=== PATIENT | male | born 1995 | race Two or more races ===

== ENCOUNTER → 2018-04-23 | Outpatient (CLI) | payer BC ==
[2018-04-23 10:06] LABS: LDL CHOLESTEROL 63 mg/dl
== END ==
LOC: LAB 09:15
PROVIDERS: ATTEND Nurse Practitioner Pediatrics
DX: F43.10 Post-traumatic stress disorder, unspecified (principal)
CPT/HCPCS: 36415; 82310; 82374; 82435; 82465; 82565; 82947; 83718; 84132; 84146; 84295; 84443; 84478; 84520; 85027

== ENCOUNTER → 2018-04-24 | Outpatient (CLI) | payer BC | LOC: EDBD → RESP 00:55 | PROVIDERS: ATTEND Nurse Practitioner Pediatrics | DX: F43.10 Post-traumatic stress disorder, unspecified (principal) | CPT/HCPCS: 95819 ==

== ENCOUNTER 2018-08-19 19:07 | Emergency (ER) | payer BC ==
[2018-08-19] MEDS ORDERED: FLUO-201 PO (19:14)
[2018-08-19] MEDS ORDERED: ARI2 PO (19:14)
--- NOTE | 2018-08-19 19:25 | ER Report ---
History and Physical Time Seen By MD: 19:16 Hx. of Stated Complaint: FEELS LIKE HE'S STRUGGLING AND WANTS TO TALK WITH SOMEONE. 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 He has a long history of mental health. He has a previous suicidal attempt sitting on a building with plans to jump off at [facility] several months ago. [facility] is being followed by [facility]. He sees a counselor here. He is on medication. There's been no change in his dose. Patient states smoking cannabis at least twice daily continuously for several weeks to months. He denies a suicidal plan or ideation at this time. REVIEW OF SYSTEMS: Respiratory: No cough, no dyspnea. Cardiovascular: No chest pain, no palpitations. Gastrointestinal: No vomiting, no abdominal pain. Musculoskeletal: No back pain. Allergies: Coded Allergies: No Known Drug Allergies (Unverified , 08/20/18) Home Meds Reported Medications Fluoxetine Hcl (PROZAC) 10 Mg Capsule, 10 MG PO QDAY, CAPSULE 08/19/18 Aripiprazole (ABILIFY) 2 Mg Tablet, 2 MG PO QDAY, TAB 08/19/18 [facility]: [facility] Hx Alcohol Use: Yes Constitutional Vital Sign - Last 24 Hours 08/19/18 08/19/18 08/19/18 08/19/18 19:11 19:13 19:22 19:30 Temp 98.7 Pulse 68 74 Resp 14 B/P (MAP) 130/91 130/91 (104) 123/81 (95) Pulse Ox 96 94 O2 Delivery Room Air 08/19/18 08/19/18 08/19/18 08/19/18 19:37 19:52 20:04 20:07 Pulse 67 64 69 B/P (MAP) 134/97 (109) Pulse Ox 96 97 94 08/19/18 08/19/18 08/19/18 08/19/18 20:22 20:30 20:37 20:52 Pulse ??? 66 ??? B/P (MAP) 121/81 (94) Pulse Ox 97 Physical Exam Vital signs stable, afebrile, pulse ox normal General Appearance: The patient is alert, has no immediate need for airway protection and no current signs of toxicity., Withdrawn, slow quiet affect HEENT: Pupils equal and round no injection. TMs normal, oropharynx without redness or exudate, mucous. Membranes are moist Respiratory: Chest is non tender, lungs are clear to auscultation. Cardiac: regular rate and rhythm Gastrointestinal: Abdomen is soft and non tender, no masses, bowel sounds normal. Musculoskeletal: Neck: Neck is supple and non tender. No lymphadenopathy Extremities have full range of motion and are non tender. Skin: No rashes or lesions. DIFFERENTIAL DIAGNOSIS: After history and physical exam differential diagnosis was considered for depression including functional and major depression, situational depression, medication side effect, drugs and alcohol abuse. Medical Decision Making Data Points Result Diagram: 08/19/18193008/19/181930 Laboratory Hematology Test 08/19/18 19:31 08/19/18 20:03 Red Blood Count 5.06 M/uL (4.00-5.60) Mean Corpuscular Volume 89.6 fL (80.0-96.0) Mean Corpuscular Hemoglobin 31.4 pg (26.0-33.0) Mean Corpuscular Hemoglobin Concent 35.0 g/dL (32.0-36.0) Red Cell Distribution Width 12.9 % (11.5-14.5) Mean Platelet Volume 7.4 fL (7.2-11.1) Neutrophils (%) (Auto) 63.7 % (39.4-72.5) Lymphocytes (%) (Auto) 25.4 % (17.6-49.6) Monocytes (%) (Auto) 8.2 % (4.1-12.4) Eosinophils (%) (Auto) 2.1 % (0.4-6.7) Basophils (%) (Auto) 0.6 % (0.3-1.4) Nucleated RBC Relative Count (auto) 0.0 /100WBC Neutrophils # (Auto) 5.6 K/uL (2.0-7.4) Lymphocytes # (Auto) 2.2 K/uL (1.3-3.6) Monocytes # (Auto) 0.7 K/uL (0.3-1.0) Eosinophils # (Auto) 0.2 K/uL (0.0-0.5) Basophils # (Auto) 0.1 K/uL (0.0-0.1) Nucleated RBC Absolute Count (auto) 0.00 K/uL Sodium Level 143 mmol/L (137-145) Potassium Level 3.6 mmol/L (3.5-5.0) Chloride Level 104 mmol/L (98-107) Carbon Dioxide Level 25 mmol/L (22-30) Blood Urea Nitrogen 16 mg/dl (9-21) Creatinine 1.10 mg/dl (0.66-1.25) Glomerular Filtration Rate Calc > 60.0 Random Glucose 87 mg/dl (75-110) Calcium Level 9.5 mg/dl (8.4-10.2) Magnesium Level 2.2 mg/dl (1.7-2.2) Total Bilirubin 0.6 mg/dl (0.2-1.3) Aspartate Amino Transf (AST/SGOT) 24 U/L (0-35) Alanine Aminotransferase (ALT/SGPT) 34 U/L (0-56) Alkaline Phosphatase 56 U/L (0-126) Total Protein 7.6 g/dl (6.3-8.2) Albumin 4.5 g/dl (3.5-5.0) Thyroid Stimulating Hormone (TSH) 2.78 uIU/ml (0.46-4.68) Salicylates Level < 10 mg/L Salicylate Last Dose Date unk Acetaminophen Level < 10 ug/ml Serum Alcohol < 10 mg/dl Urine Color Yellow Urine Clarity Clear Urine pH 5.0 pH (4.8-9.5) Urine Specific [place] 1.026 Urine Protein Negative mg/dL (NEGATIVE) Urine Glucose (UA) Negative mg/dL (NEGATIVE) Urine Ketones Negative mg/dL (NEGATIVE) Urine Blood Negative (NEGATIVE) Urine Nitrite Negative (NEGATIVE) Urine Bilirubin Negative (NEGATIVE) Urine Urobilinogen 2.0 mg/dL (0.2-1.9) Urine Leukocyte Esterase Negative (NEGATIVE) Urine RBC 6 /HPF (0-2/HPF) Urine WBC 1 /HPF (0-5/HPF) Urine Squamous Epithelial Cells None /LPF (</=FEW) Urine Bacteria Negative /HPF (NONE-FEW) Urine Mucus Few /HPF (NONE-FEW) Urine Opiates Screen Negative Urine Barbiturates Screen Negative Ur Tricyclic Antidepressants Screen Negative Urine Phencyclidine Screen Negative Urine Amphetamines Screen Negative Urine Benzodiazepines Screen Negative Urine Cocaine Screen Negative Urine Cannabinoids Screen Positive Chemistry Test 08/19/18 19:31 08/19/18 20:03 White Blood Count 8.8 k/uL (4.5-11.0) Red Blood Count 5.06 M/uL (4.00-5.60) Hemoglobin 15.9 g/dL (14.0-18.0) Hematocrit 45.4 % (42.0-52.0) Mean Corpuscular Volume 89.6 fL (80.0-96.0) Mean Corpuscular Hemoglobin 31.4 pg (26.0-33.0) Mean Corpuscular Hemoglobin Concent 35.0 g/dL (32.0-36.0) Red Cell Distribution Width 12.9 % (11.5-14.5) Platelet Count 291 K/uL (150-450) Mean Platelet Volume 7.4 fL (7.2-11.1) Neutrophils (%) (Auto) 63.7 % (39.4-72.5) Lymphocytes (%) (Auto) 25.4 % (17.6-49.6) Monocytes (%) (Auto) 8.2 % (4.1-12.4) Eosinophils (%) (Auto) 2.1 % (0.4-6.7) Basophils (%) (Auto) 0.6 % (0.3-1.4) Nucleated RBC Relative Count (auto) 0.0 /100WBC Neutrophils # (Auto) 5.6 K/uL (2.0-7.4) Lymphocytes # (Auto) 2.2 K/uL (1.3-3.6) Monocytes # (Auto) 0.7 K/uL (0.3-1.0) Eosinophils # (Auto) 0.2 K/uL (0.0-0.5) Basophils # (Auto) 0.1 K/uL (0.0-0.1) Nucleated RBC Absolute Count (auto) 0.00 K/uL Glomerular Filtration Rate Calc > 60.0 Calcium Level 9.5 mg/dl (8.4-10.2) Magnesium Level 2.2 mg/dl (1.7-2.2) Total Bilirubin 0.6 mg/dl (0.2-1.3) Aspartate Amino Transf (AST/SGOT) 24 U/L (0-35) Alanine Aminotransferase (ALT/SGPT) 34 U/L (0-56) Alkaline Phosphatase 56 U/L (0-126) Total Protein 7.6 g/dl (6.3-8.2) Albumin 4.5 g/dl (3.5-5.0) Thyroid Stimulating Hormone (TSH) 2.78 uIU/ml (0.46-4.68) Salicylates Level < 10 mg/L Salicylate Last Dose Date unk Acetaminophen Level < 10 ug/ml Serum Alcohol < 10 mg/dl Urine Color Yellow Urine Clarity Clear Urine pH 5.0 pH (4.8-9.5) Urine Specific [place] 1.026 Urine Protein Negative mg/dL (NEGATIVE) Urine Glucose (UA) Negative mg/dL (NEGATIVE) Urine Ketones Negative mg/dL (NEGATIVE) Urine Blood Negative (NEGATIVE) Urine Nitrite Negative (NEGATIVE) Urine Bilirubin Negative (NEGATIVE) Urine Urobilinogen 2.0 mg/dL (0.2-1.9) Urine Leukocyte Esterase Negative (NEGATIVE) Urine RBC 6 /HPF (0-2/HPF) Urine WBC 1 /HPF (0-5/HPF) Urine Squamous Epithelial Cells None /LPF (</=FEW) Urine Bacteria Negative /HPF (NONE-FEW) Urine Mucus Few /HPF (NONE-FEW) Urine Opiates Screen Negative Urine Barbiturates Screen Negative Ur Tricyclic Antidepressants Screen Negative Urine Phencyclidine Screen Negative Urine Amphetamines Screen Negative Urine Benzodiazepines Screen Negative Urine Cocaine Screen Negative Urine Cannabinoids Screen Positive Toxicology Test 08/19/18 19:31 08/19/18 20:03 Salicylates Level < 10 mg/L Salicylate Last Dose Date unk Acetaminophen Level < 10 ug/ml Serum Alcohol < 10 mg/dl Urine Opiates Screen Negative Urine Barbiturates Screen Negative Ur Tricyclic Antidepressants Screen Negative Urine Phencyclidine Screen Negative Urine Amphetamines Screen Negative Urine Benzodiazepines Screen Negative Urine Cocaine Screen Negative Urine Cannabinoids Screen Positive Urinalysis Test 08/19/18 20:03 Urine Color Yellow Urine Clarity Clear Urine pH 5.0 pH (4.8-9.5) Urine Specific [place] 1.026 Urine Protein Negative mg/dL (NEGATIVE) Urine Glucose (UA) Negative mg/dL (NEGATIVE) Urine Ketones Negative mg/dL (NEGATIVE) Urine Blood Negative (NEGATIVE) Urine Nitrite Negative (NEGATIVE) Urine Bilirubin Negative (NEGATIVE) Urine Urobilinogen 2.0 mg/dL (0.2-1.9) Urine Leukocyte Esterase Negative (NEGATIVE) Urine RBC 6 /HPF (0-2/HPF) Urine WBC 1 /HPF (0-5/HPF) Urine Squamous Epithelial Cells None /LPF (</=FEW) Urine Bacteria Negative /HPF (NONE-FEW) Urine Mucus Few /HPF (NONE-FEW) ED Course/Re-evaluation ED Course Patient was admitted to an examination room. H&P was done. The differential diagnoses was considered. On clinical examination, patient appears depressed and withdrawn. He denies suicidal ideation or plan. He is on medication. He's been struggling to cope with his current problems. He feels like school is overwhelming him. Diagnostic evaluation was performed. And was unremarkable. [facility] staff was consulted to speak with the patient to give him options. He is given option to return should he have any worsening. ER. He has counseling and follow-up. Decision to Disposition Date: Aug 19, 2018 Decision to Disposition Time: 19:39 Depart Departure Latest Vital Signs Vital Signs Date Time Temp Pulse Resp B/P (MAP) Pulse Ox O2 Delivery O2 Flow Rate FiO2 08/19/18 20:52 ??? 08/19/18 20:37 97 08/19/18 20:30 121/81 (94) 08/19/18 19:11 98.7 14 Room Air Impression: Primary Impression: Depression Condition: Improved Disposition: HOME OR SELF-CARE Patient Instructions: Depression (ED) Additional Instructions: Follow-up with your counselor tomorrow or the next day Feel free to return for any worsening, especially if you are feeling overtly suicidal Problem Qualifiers Primary Impression: Depression Depression Type: major depressive disorder Major depression recurrence: recurrent Active/Remission status: currently active Major depression episode severity: severe Psychotic features: without psychotic features Qualified Codes: F33.2 - Major depressive disorder, recurrent severe without psychotic features JASON NOLAN DO Aug 19, 2018 19:25
[2018-08-19 19:40] LABS: PLATELET COUNT, AUTOMATED 291 K/uL (150-450)
[2018-08-19 20:30] VITALS: BP 121/81
== END 2018-08-19 20:57 | disposition home or self-care (01) ==
LOC: ER 19:39
DX: F33.2 Major depressive disorder, recurrent severe without psychotic features (principal); F12.90 Cannabis use, unspecified, uncomplicated
CPT/HCPCS: 80305; 80320; 80329; 81001; 82040; 82247; 82310; 82374; 82435; 82565; 82947; 83735; 84075; 84132; 84155; 84295; 84443; 84450; 84460; 84520; 85025; 99281

== ENCOUNTER 2018-08-20 17:14 | Emergency (ER) | payer BC ==
[~2018-08-20 17:14] MED LIST: ARI2 PO; FLUO-201 PO
[2018-08-20 17:21] VITALS: BP 115/67
--- NOTE | 2018-08-20 17:25 | ER Report ---
History and Physical Time Seen By MD: 17:24 Hx. of Stated Complaint: depression HPI/ROS CHIEF COMPLAINT: Depression HISTORY OF PRESENT ILLNESS: This is a 23-year-old male who presents to the emergency Department for depression. Patient states he was here yesterday for depressive thoughts, was ultimately encouraged to come to the emergency department from his professor and the [employer] police. There was no indication of suicidal or homicidal gestures yesterday, there is no suicidal or homicidal gestures today. Patient states he feels that he isn't in place now where he would be willing to go upstairs to the behavioral health unit for an evaluation. Patient states he has seeing a counselor but doesn't feel that its adequate at this time. He is looking for other resources. No fevers or chills. No chest pain or shortness of breath. No nausea or vomiting. REVIEW OF SYSTEMS: Constitutional: No fever, no chills. Eyes: No discharge. ENT: No sore throat. Cardiovascular: No chest pain, no palpitations. Respiratory: No cough, no shortness of breath. Gastrointestinal: No abdominal pain, no vomiting. Genitourinary: No hematuria. Musculoskeletal: No back pain. Skin: No rashes. Neurological: No headache. Psych: As above. Allergies: Coded Allergies: No Known Drug Allergies (Unverified , 08/20/18) Home Meds Reported Medications Fluoxetine Hcl (PROZAC) 10 Mg Capsule, 10 MG PO QDAY, CAPSULE 08/19/18 Aripiprazole (ABILIFY) 2 Mg Tablet, 2 MG PO QDAY, TAB 08/19/18 Past Medical/Surgical History The patient has a past medical and surgical history of ruptured eardrum, uses marijuana, depression. Reviewed Nurses Notes: Yes Hx Substance Use Disorder: Yes ([facility]) Hx Alcohol Use: Yes Constitutional Vital Sign - Last 24 Hours 08/20/18 17:21 Temp 98.0 Pulse 61 Resp 18 B/P (MAP) 115/67 Pulse Ox 94 Physical Exam General Appearance: The patient is alert, has no immediate need for airway protection and no signs of toxicity. Eyes: Pupils equal and round no pallor or injection. ENT, Mouth: Mucous membranes are moist. Respiratory: There are no retractions, lungs are clear to auscultation. Cardiovascular: Regular rate and rhythm. Gastrointestinal: Abdomen is soft and non tender, no masses, bowel sounds normal. Neurological: Alert and oriented 4. Moving all extremities. Following all commands. No focal neuro deficits. Skin: Warm and dry, no rashes. Musculoskeletal: Neck is supple non tender. Extremities are nontender, nonswollen and have full range of motion. Psych: Patient is making good eye contact, interacting well, soft voice, nonthreatening and cooperative. No suicidal or homicidal gestures. DIFFERENTIAL DIAGNOSIS: After history and physical exam differential diagnosis was considered for depression, anxiety. Medical Decision Making Data Points Result Diagram: 08/20/18 1734 08/20/18 1734 Laboratory Hematology Test 08/20/18 17:34 08/20/18 18:26 Red Blood Count 5.03 M/uL (4.00-5.60) Mean Corpuscular Volume 90.8 fL (80.0-96.0) Mean Corpuscular Hemoglobin 31.6 pg (26.0-33.0) Mean Corpuscular Hemoglobin Concent 34.8 g/dL (32.0-36.0) Red Cell Distribution Width 13.1 % (11.5-14.5) Mean Platelet Volume 7.6 fL (7.2-11.1) Neutrophils (%) (Auto) 66.4 % (39.4-72.5) Lymphocytes (%) (Auto) 21.8 % (17.6-49.6) Monocytes (%) (Auto) 6.8 % (4.1-12.4) Eosinophils (%) (Auto) 3.4 % (0.4-6.7) Basophils (%) (Auto) 1.6 % (0.3-1.4) Nucleated RBC Relative Count (auto) 0.1 /100WBC Neutrophils # (Auto) 5.7 K/uL (2.0-7.4) Lymphocytes # (Auto) 1.9 K/uL (1.3-3.6) Monocytes # (Auto) 0.6 K/uL (0.3-1.0) Eosinophils # (Auto) 0.3 K/uL (0.0-0.5) Basophils # (Auto) 0.1 K/uL (0.0-0.1) Nucleated RBC Absolute Count (auto) 0.01 K/uL Sodium Level 140 mmol/L (137-145) Potassium Level 3.8 mmol/L (3.5-5.0) Chloride Level 103 mmol/L (98-107) Carbon Dioxide Level 25 mmol/L (22-30) Blood Urea Nitrogen 17 mg/dl (9-21) Creatinine 1.10 mg/dl (0.66-1.25) Glomerular Filtration Rate Calc > 60.0 Random Glucose 104 mg/dl (75-110) Calcium Level 9.6 mg/dl (8.4-10.2) Magnesium Level 2.0 mg/dl (1.7-2.2) Total Bilirubin 0.6 mg/dl (0.2-1.3) Aspartate Amino Transf (AST/SGOT) 22 U/L (0-35) Alanine Aminotransferase (ALT/SGPT) 27 U/L (0-56) Alkaline Phosphatase 59 U/L (0-126) Total Protein 7.1 g/dl (6.3-8.2) Albumin 4.2 g/dl (3.5-5.0) Salicylates Level < 10 mg/L Salicylate Last Dose Date unk Acetaminophen Level < 10 ug/ml Serum Alcohol < 10 mg/dl Urine Color Yellow Urine Clarity Clear Urine pH 6.0 pH (4.8-9.5) Urine Specific [place] 1.015 Urine Protein Negative mg/dL (NEGATIVE) Urine Glucose (UA) Negative mg/dL (NEGATIVE) Urine Ketones Negative mg/dL (NEGATIVE) Urine Blood Negative (NEGATIVE) Urine Nitrite Negative (NEGATIVE) Urine Bilirubin Negative (NEGATIVE) Urine Urobilinogen Negative mg/dL (0.2-1.9) Urine Leukocyte Esterase Negative (NEGATIVE) Urine RBC 1 /HPF (0-2/HPF) Urine WBC <1 /HPF (0-5/HPF) Urine Squamous Epithelial Cells None /LPF (</=FEW) Urine Bacteria Negative /HPF (NONE-FEW) Urine Mucus None /HPF (NONE-FEW) Urine Opiates Screen Negative Urine Barbiturates Screen Negative Ur Tricyclic Antidepressants Screen Negative Urine Phencyclidine Screen Negative Urine Amphetamines Screen Negative Urine Benzodiazepines Screen Negative Urine Cocaine Screen Negative Urine Cannabinoids Screen Positive Chemistry Test 08/20/18 17:34 08/20/18 18:26 White Blood Count 8.6 k/uL (4.5-11.0) Red Blood Count 5.03 M/uL (4.00-5.60) Hemoglobin 15.9 g/dL (14.0-18.0) Hematocrit 45.7 % (42.0-52.0) Mean Corpuscular Volume 90.8 fL (80.0-96.0) Mean Corpuscular Hemoglobin 31.6 pg (26.0-33.0) Mean Corpuscular Hemoglobin Concent 34.8 g/dL (32.0-36.0) Red Cell Distribution Width 13.1 % (11.5-14.5) Platelet Count 288 K/uL (150-450) Mean Platelet Volume 7.6 fL (7.2-11.1) Neutrophils (%) (Auto) 66.4 % (39.4-72.5) Lymphocytes (%) (Auto) 21.8 % (17.6-49.6) Monocytes (%) (Auto) 6.8 % (4.1-12.4) Eosinophils (%) (Auto) 3.4 % (0.4-6.7) Basophils (%) (Auto) 1.6 % (0.3-1.4) Nucleated RBC Relative Count (auto) 0.1 /100WBC Neutrophils # (Auto) 5.7 K/uL (2.0-7.4) Lymphocytes # (Auto) 1.9 K/uL (1.3-3.6) Monocytes # (Auto) 0.6 K/uL (0.3-1.0) Eosinophils # (Auto) 0.3 K/uL (0.0-0.5) Basophils # (Auto) 0.1 K/uL (0.0-0.1) Nucleated RBC Absolute Count (auto) 0.01 K/uL Glomerular Filtration Rate Calc > 60.0 Calcium Level 9.6 mg/dl (8.4-10.2) Magnesium Level 2.0 mg/dl (1.7-2.2) Total Bilirubin 0.6 mg/dl (0.2-1.3) Aspartate Amino Transf (AST/SGOT) 22 U/L (0-35) Alanine Aminotransferase (ALT/SGPT) 27 U/L (0-56) Alkaline Phosphatase 59 U/L (0-126) Total Protein 7.1 g/dl (6.3-8.2) Albumin 4.2 g/dl (3.5-5.0) Salicylates Level < 10 mg/L Salicylate Last Dose Date unk Acetaminophen Level < 10 ug/ml Serum Alcohol < 10 mg/dl Urine Color Yellow Urine Clarity Clear Urine pH 6.0 pH (4.8-9.5) Urine Specific [place] 1.015 Urine Protein Negative mg/dL (NEGATIVE) Urine Glucose (UA) Negative mg/dL (NEGATIVE) Urine Ketones Negative mg/dL (NEGATIVE) Urine Blood Negative (NEGATIVE) Urine Nitrite Negative (NEGATIVE) Urine Bilirubin Negative (NEGATIVE) Urine Urobilinogen Negative mg/dL (0.2-1.9) Urine Leukocyte Esterase Negative (NEGATIVE) Urine RBC 1 /HPF (0-2/HPF) Urine WBC <1 /HPF (0-5/HPF) Urine Squamous Epithelial Cells None /LPF (</=FEW) Urine Bacteria Negative /HPF (NONE-FEW) Urine Mucus None /HPF (NONE-FEW) Urine Opiates Screen Negative Urine Barbiturates Screen Negative Ur Tricyclic Antidepressants Screen Negative Urine Phencyclidine Screen Negative Urine Amphetamines Screen Negative Urine Benzodiazepines Screen Negative Urine Cocaine Screen Negative Urine Cannabinoids Screen Positive Toxicology Test 08/20/18 17:34 08/20/18 18:26 Salicylates Level < 10 mg/L Salicylate Last Dose Date unk Acetaminophen Level < 10 ug/ml Serum Alcohol < 10 mg/dl Urine Opiates Screen Negative Urine Barbiturates Screen Negative Ur Tricyclic Antidepressants Screen Negative Urine Phencyclidine Screen Negative Urine Amphetamines Screen Negative Urine Benzodiazepines Screen Negative Urine Cocaine Screen Negative Urine Cannabinoids Screen Positive Urinalysis Test 08/20/18 18:26 Urine Color Yellow Urine Clarity Clear Urine pH 6.0 pH (4.8-9.5) Urine Specific [place] 1.015 Urine Protein Negative mg/dL (NEGATIVE) Urine Glucose (UA) Negative mg/dL (NEGATIVE) Urine Ketones Negative mg/dL (NEGATIVE) Urine Blood Negative (NEGATIVE) Urine Nitrite Negative (NEGATIVE) Urine Bilirubin Negative (NEGATIVE) Urine Urobilinogen Negative mg/dL (0.2-1.9) Urine Leukocyte Esterase Negative (NEGATIVE) Urine RBC 1 /HPF (0-2/HPF) Urine WBC <1 /HPF (0-5/HPF) Urine Squamous Epithelial Cells None /LPF (</=FEW) Urine Bacteria Negative /HPF (NONE-FEW) Urine Mucus None /HPF (NONE-FEW) ED Course/Re-evaluation ED Course The patient was admitted to room. History of physical were obtained. Differential diagnoses were considered. Behavioral health labs were obtained, the labs were unremarkable. Urine was negative. Urine drug screen positive for cannabis otherwise unremarkable. It is speak with Dr. Clancy regarding the patient's case, she is accepted the patient in the behavioral health unit, the patient will be escorted to the unit. The patient had no other questions or concerns at this time. 08/20/2018 6:59:45 pm I did speak with Dr. Clancy regarding the patient's case, she has accepted the patient into the behavioral health unit, the patient has signed in voluntarily and is change into his scrubs. Decision to Disposition Date: Aug 20, 2018 Decision to Disposition Time: 19:00 Depart Departure Latest Vital Signs Vital Signs Date Time Temp Pulse Resp B/P (MAP) Pulse Ox O2 Delivery O2 Flow Rate FiO2 08/20/18 17:21 98.0 61 18 115/67 94 Impression: Primary Impression: Depression Condition: Improved Disposition: XFER TO [facility] Problem Qualifiers Primary Impression: Depression Depression Type: unspecified Qualified Codes: F32.9 - Major depressive disorder, single episode, unspecified SAPNA PEREZ HAM BONER-BC Aug 20, 2018 17:24
[2018-08-20 17:43] LABS: PLATELET COUNT, AUTOMATED 288 K/uL (150-450)
== END 2018-08-20 19:37 ==
LOC: ER 17:17
DX: F32.9 Major depressive disorder, single episode, unspecified (principal)
CPT/HCPCS: 36415; 80305; 80320; 80329; 81001; 82040; 82247; 82310; 82374; 82435; 82565; 82947; 83735; 84075; 84132; 84155; 84295; 84443; 84450; 84460; 84520; 85025; 99283

== ENCOUNTER 2018-08-20 19:19 | Inpatient (IN) | payer BC ==
[~2018-08-20] VITALS: Ht 190.5 cm; Wt 65.8 kg
[2018-08-20 19:41] VITALS: BP 129/83
[2018-08-20] MEDS ORDERED: MAG HYD/AL HYD/SIMETH 30ML UDC PO PRN (20:00)
[2018-08-20] MEDS ORDERED: ACETAMINOPHEN 325 MG TAB PO PRN (20:00)
[2018-08-20] MEDS: ARIPiprazole 10 MG TAB PO SCH (21:00)
[2018-08-20] MEDS: FLUoxetine HCL 20 MG CAP PO SCH (21:00)
[2018-08-20] MEDS: hydrOXYzine PAMOATE 25 MG CAP PO PRN (21:33)
[2018-08-21] MEDS: MULTIVITAMINS PO SCH (08:36)
[2018-08-21] MEDS: NICOTINE POLACRILEX 2 MG GUM PO PRN (12:24)
[2018-08-21 13:10] VITALS: BP 98/54
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
[2018-08-21] MEDS: FLUoxetine HCL 20 MG CAP PO SCH (20:41)
[2018-08-21] MEDS: ARIPiprazole 10 MG TAB PO SCH (20:41)
[2018-08-22 06:30] VITALS: BP 98/62
[2018-08-22] MEDS: MULTIVITAMINS PO SCH (08:46)
[2018-08-22] MEDS: NICOTINE POLACRILEX 2 MG GUM PO PRN ×3 (08:58→21:06)
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
[2018-08-22] MEDS: hydrOXYzine PAMOATE 25 MG CAP PO PRN (21:06)
[2018-08-22] MEDS: FLUoxetine HCL 20 MG CAP PO SCH (21:07)
[2018-08-22] MEDS: ARIPiprazole 10 MG TAB PO SCH (21:07)
[2018-08-23 06:14] VITALS: BP 102/60
[2018-08-23] MEDS: MULTIVITAMINS PO SCH (08:29)
[2018-08-23] MEDS ORDERED: ARIP10TA4 PO (11:19)
[2018-08-23] MEDS ORDERED: FLUO-202 PO (11:20)
[2018-08-23] MEDS ORDERED: NICO-306 BC (11:21)
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
== END 2018-08-23 12:55 | disposition home or self-care (01) | DRG 897 ==
LOC: BHS 19:19
PROVIDERS: ADMIT Psychiatry & Neurology Psychiatry; ATTEND Psychiatry & Neurology Psychiatry
DX: F15.24 Other stimulant dependence with stimulant-induced mood disorder (principal); R45.851 Suicidal ideations; F43.12 Post-traumatic stress disorder, chronic; F17.210 Nicotine dependence, cigarettes, uncomplicated; F32.9 Major depressive disorder, single episode, unspecified; G47.00 Insomnia, unspecified; Z62.810 Personal history of physical and sexual abuse in childhood; Z91.5 Personal history of self-harm; Z81.3 Family history of other psychoactive substance abuse and dependence; Z81.8 Family history of other mental and behavioral disorders
CPT/HCPCS: Q0177